=== PATIENT | female | born 1955 | race Caucasian/White ===

== ENCOUNTER 2017-09-06 10:25 | Day surgery (SDC) | payer BC ==
[2017-08-28 17:23] VITALS: BMI 23.4
--- NOTE | 2017-09-06 07:43 | HP ---
History & Physical Update - History History: No Change - Physical Physical: No Change - Assessment Assessment: No Change - Plan Plan: No Change (Initial H&P is patient's chart. Completed by Sreedhar Henderson MD on 08/28/17. C/o ^ back pain that radiates left lateral. Neck pain radiates down both arms. Muscle spasms. Here today for ACDF C6/7)
[2017-09-06] MEDS ORDERED: oxyCODONE HCL 10 MG SUSTAINED ACTING TABLET ONE (11:38)
[2017-09-06] MEDS: oxyCODONE HCL 10 MG SUSTAINED ACTING TABLET PO STA ×2 (11:56→17:32)
[2017-09-06] MEDS ORDERED: fentaNYL CITRATE 250 MCG/5 ML VIAL ONE (11:58)
[2017-09-06] MEDS ORDERED: PROPOFOL 20 ML ONE ×9 (11:58→14:57)
[2017-09-06] MEDS ORDERED: SUCCINYLCHOLINE CHLORIDE 200 MG/10 ML VIAL ONE (11:59)
[2017-09-06] MEDS ORDERED: LIDOCAINE HCL/PF 2% SDV 5ML VIAL ONE (11:59)
[2017-09-06] MEDS ORDERED: MIDAZOLAM HCL 2 MG/2 ML SINGLE DOSE VIAL ONE ×2 (11:59→12:59)
[2017-09-06] MEDS ORDERED: DEXAMETHASONE SOD PHOSPHATE/PF 10 MG/ML SDV ONE (12:59)
[2017-09-06] MEDS ORDERED: THROMBIN (BOVINE) 5,000 UNIT VIAL TP ONE ×2 (12:59→14:15)
[2017-09-06] MEDS ORDERED: LIDOCAINE 1%/EPI 1:100000 (20 ML MULTI DOSE VIAL) ONE (12:59)
[2017-09-06] MEDS ORDERED: BUPIVACAINE HCL/PF (5 MG/ML) 30 ML VIAL IJ ONE (13:00)
[2017-09-06] MEDS ORDERED: ONDANSETRON 4 MG/2 ML VIAL IVPUSH PRN ×2 (13:26→16:05)
[2017-09-06] MEDS ORDERED: oxyCODONE HCL 5 MG TABLET PO PRN ×2 (13:26→15:48)
[2017-09-06] MEDS ORDERED: LACTATED RINGERS SOLUTION 1,000 ML IV SCH ×2 (13:30→16:00)
--- NOTE | 2017-09-06 15:47 | OP ---
Operative Note - Note: Operative Date: 09/06/17 Pre-Operative Diagnosis: Cervical stenosis, herniated disc, radiculopathy Operation: ACDF C6/7 Post-Operative Diagnosis: Same as Pre-op Surgeon: César Hurtado Operations Director: Chalo Rosenthal Anesthesiologist/DRY MILL OPERATOR: Yadira Meraz Anesthesia: General Specimens Removed: C6/7 disc Estimated Blood Loss (mls): 15 Fluid Volume Replaced (mls): 700 Operative Report Dictated: Yes
[2017-09-06] MEDS ORDERED: ALPRAZolam 0.25 MG TABLET PO PRN ×2 (15:48→16:06)
[2017-09-06] MEDS ORDERED: morphine SULFATE 4 MG/ML VIAL IVPUSH PRN (15:48)
--- NOTE | 2017-09-06 15:48 | SURG ---
Surgery Sales Operations Coordinator Note Sales Operations Coordinator: Chalo Rosenthal PA-C Date of Service: 09/06/17 Diagnosis: Cervical stenosis, herniated C6/7, radiculopathy Procedure: Anterior cervical discectomy/fusion C6/7, neuro monitoring I was present for the entirety of the operative procedure. For further detail, please refer to operative report. Visit type - Case Type Case Type: Scheduled - New patient This patient is new to me today: Yes Date on this admission: 09/06/17
[2017-09-06] MEDS ORDERED: ONDANSETRON 4 MG/2 ML VIAL ONE (16:07)
[2017-09-06] MEDS ORDERED: CEFAZOLIN 1 GM/D5W 1 GM/50 ML BAG IVPB SCH (18:00)
[2017-09-06] MEDS: CEFAZOLIN 1 GM/D5W 1 GM/50 ML BAG IVPB SCH (21:50)
[2017-09-07] MEDS: CEFAZOLIN 1 GM/D5W 1 GM/50 ML BAG IVPB SCH (05:09)
[2017-09-07 06:39] VITALS: BP 114/57; PULSE 75; TEMP 97.9
--- NOTE | 2017-09-07 07:28 | DS ---
Physical Exam: SUBJECTIVE: Patient seen and examined. Doing well. c/o mild discomfort when swallowing but tolerable she said (to be expected). She's been OOB and ambulating unassisted. Wearing soft cervical collar as instructed. Voiding spontaneously. States her pain prior to surgery was 9/10. Currently, it's 4/10. OBJECTIVE: Vital Signs Temperature 97.9 F 09/07/17 05:00 Pulse Rate 75 09/07/17 05:00 Respiratory Rate 17 09/07/17 05:00 Blood Pressure 114/57 09/07/17 05:00 O2 Sat by Pulse Oximetry (%) 98 09/07/17 06:37 PHYSICAL EXAM GENERAL: The patient is awake, alert, and fully oriented, in no acute distress. HEAD: Normal with no signs of trauma. EYES: PERRL, extraocular movements intact, sclera anicteric, conjunctiva clear. NECK: Trachea midline, incision c/d/i. no palpable hematoma. RAYO removed on rounds LUNGS: cta bilat HEART: rrr EXTREMITIES: 2+ pulses, warm, well-perfused, no edema. NEUROLOGICAL: Cranial nerves II through XII grossly intact. Normal speech, gait not observed. PSYCH: Normal mood, normal affect. SKIN: Warm, dry, normal turgor, no rashes or lesions noted. LABS HOSPITAL COURSE: Date of Admission:09/06/17 Date of Discharge: 09/07/17 The patient was admitted to the Med-Surg Unit after an elective repair of their C6/7 herniated disc. Now, s/p C6/7 ACDF The day of surgery, the patient ambulated the hallways with assistance. Narcotic and non-narcotic pain management control was achieved with an oral and IV approach. POD #1, the surgical drain was removed fully intact and without incident. An xray was obtained and confirmed hardware placement at C6/7, no fractures or dislocations. Asha-operative IV ABX were administered. DVT prophylaxis was achieved with SCDs and early ambulation. The patient ambulated with Physical Therapy and no services were recommended upon discharge. Narcotic scripts and or muscle relaxants were checked with [employer] LANGUAGE ASSISTANT prior to escribe. The discharge instructions and an oral pain management plan were reviewed with the patient. All questions answered. Above plan discussed with Dr. Hurtado and agreed. Minutes to complete discharge: 15 Visit type - Case Type Case Type: Scheduled
[2017-09-07] MEDS ORDERED: RANITIDINE HCL 150 MG TABLET (FP) PO SCH (10:00)
--- NOTE | 2017-09-07 12:49 | PN ---
Progress Note (short form) - Note Progress Note: Anesthesia Post-op: 61 yo female POD #1 s/p ACDF S: Patient doing well. Ambulating around room. Pain adequately controlled. O: VSS, Afebrile A/P: Continue care, encouraged IS use, no anesthesia issues
--- NOTE | 2017-09-10 17:55 | PATH ---
Surgical Pathology Report Patient Name: ALISSON NIEVES [facility] [place]. Rec. #: [id number] /Age/Gender: 1955 (Age: 61) / F Account: [id number] Location: [facility] Taken: 09/06/2017 Received: 09/06/2017 Reported: 09/10/2017 Physicians: César Hurtado M.D. Specimen(s) Received DISC C6-7 Clinical History Cervical stenosis Final Diagnosis DISC, C6-7, DISCECTOMY AND FUSION: INTERVERTEBRAL DISC TISSUE. Electronically Signed Shivani Vasquez M.D. Gross Description Received in formalin labeled "disc C6-7," is a 2.0 x 1.5 x 0.3 cm aggregate of bess fragments of fibrocartilaginous tissue. The specimen is entirely submitted in one cassette. 09/07/2017 saudi09/07/2017
== END 2017-09-07 12:55 | disposition home or self-care (01) ==
LOC: FASU 10:25 → FM/S 17:45 → FASU 09-07 12:55
PROVIDERS: ATTEND Orthopaedic Surgery Orthopaedic Surgery of the Spine
PROC: 0RG10A0 Fusion of Cervical Vertebral Joint with Interbody Fusion Device, Anterior Approach, Anterior Column, Open Approach (ICD-10-PCS; 2017-09-06)
PROC: 0RG10K0 Fusion of Cervical Vertebral Joint with Nonautologous Tissue Substitute, Anterior Approach, Anterior Column, Open Approach (ICD-10-PCS; 2017-09-06)
PROC: 0RB30ZZ Excision of Cervical Vertebral Disc, Open Approach (ICD-10-PCS; principal; 2017-09-06 14:15)
DX: M48.02 Spinal stenosis, cervical region (principal); M50.123 Cervical disc disorder at C6-C7 level with radiculopathy
CPT/HCPCS: 22551; 22845; 22853; C1889; 72050-TC-FY; 76000-TC-FY; 88304-TC; 94010; 94760; 97116-GP; 97161-GP